=== PATIENT | male | born 1965 | race Caucasian/White ===

== ENCOUNTER → 2021-11-17 09:26 | Outpatient (BNVA) | payer MEDICAID, SELFPAY | PROVIDERS: PCP Internal Medicine; Visit Provider Physician Assistant | DX: Z12.11 Encounter for screening for malignant neoplasm of colon (principal); F14.90 Cocaine use, unspecified, uncomplicated; F17.210 Nicotine dependence, cigarettes, uncomplicated ==

== ENCOUNTER 2023-10-18 11:07 | Outpatient (REF) | payer MEDICAID, SELFPAY ==
[2023-10-18 14:28] LABS: MANUAL DIFF FLAG NO
[2023-10-18 14:33] LABS: Basophils Absolute Auto 0.1 X10*3/uL (0.0-0.2); Basophils Percent Auto 0.8 % (0-2); Eosinophils Absolute Auto 0.2 X10*3/uL (0.0-0.4); Hematocrit 42.4 % (42.0-52.0); Hemoglobin 14.3 g/dl (14.0-18.0); Imm Gran Abs Auto 0.02 X10*3/uL (0.00-0.03); Imm Gran Pct Auto 0.2 % (0.0-0.4); Lymphocytes Absolute Auto 3.1 X10*3/uL (1.2-4.9); Lymphocytes Percent Auto 31.9 % (20-40); Mean Corpuscular HGB Conc 33.7 g/dl (31.0-36.0); Mean Corpuscular Hemoglobin 30.2 pg (27.0-33.0); Mean Corpuscular Volume 89.6 fL (80.0-98.0); Monocytes Absolute Auto 0.7 X10*3/uL (0.1-1.2); Monocytes Percent Auto 7.1 % (2-11); Neutrophils Absolute Auto 5.5 x10*3/uL (2.0-8.3); Platelet Count 359 X10*3/uL (160-400); Red Blood Count 4.73 X10*6/uL (4.60-5.80); Red Cell Distribution Width 13.5 % (11.0-16.0); White Blood Count 9.6 X10*3/uL (4.8-10.8)
[2023-10-18 14:42] LABS: Estimated Average Glucose 108 mg/dL; Hemoglobin A1c % 5.4 % (<6.0)
[2023-10-18 15:03] LABS: Alanine Aminotransferase 41 U/L (0-40); Albumin Level 4.5 g/dL (3.5-5.0); Alkaline Phosphatase 69 U/L (39-117); Anion Gap 11 (12-20); Aspartate Amino Transferase 79 U/L (5-37); Bilirubin Total 0.6 mg/dL (0.0-1.0); Blood Urea Nitrogen 13 mg/dL (9-16); Calcium 9.2 mg/dL (8.4-10.2); Carbon Dioxide 25 mmol/L (22-29); Chloride 109 mmol/L (96-108); Cholesterol 195 mg/dL (<200); Estimated Glomerular Filt Rate > 60; Glucose Random 88 mg/dL (60-115); HDL Cholesterol 36 mg/dL (>40); LDL Cholesterol Calculated 136 mg/dL (<100); Sodium 141 mmol/L (135-145); Total Protein 7.3 g/dL (6.5-8.0); Triglycerides 115 mg/dL (<150)
[2023-10-18 15:07] LABS: Prostate Specific Antigen 0.42 ng/mL (<0.05-4.0)
[2023-10-18 15:10] LABS: TSH reflex Free T4 0.75 uIU/mL (0.32-4.0)
[2023-10-19 04:15] LABS: ~Hepatitis C Antibody Reactive (Nonreactive)
[2023-10-22 14:43] LABS: HCV Log PCR <1.18 NOT DETECTED Log IU/mL (NOT DETECTED); HepC Viral Load <15 NOT DETECTED IU/mL (NOT DETECTED)
== END 2023-10-18 11:08 | disposition home or self-care (01) ==
LOC: HO.CHCLDS 11:07
PROVIDERS: Visit Provider Internal Medicine
DX: E78.5 Hyperlipidemia, unspecified (principal); Z12.5 Encounter for screening for malignant neoplasm of prostate
CPT/HCPCS: 36415; 80053; 80061; 83036; 84153; 84443; 85025; 86803; 87522

== ENCOUNTER 2023-12-05 12:46 | Outpatient (AMB) | payer MEDICAID, SELFPAY ==
--- NOTE | 2023-12-05 13:00 | MHC.OFFVIS ---
Intake Vital Signs 12/05/23 13:04 Height 5 ft 9 in Weight 190 lb BMI 28.1 Intake Visit Reasons: Right inguinal hernia Intake Note: Patient is seen in office for evaluation and treatment of a right inguinal hernia. Pt c/o: Onset 2-3 months, right groin, reports bulge, reports feels pressure sensation when coughs or sneeze. [place] Required: No Accompanied by: Self / Same As Patient Allergies No Known Allergies Allergy (Verified 11/17/21 09:46) Medication List - Last Reconciled 12/05/23 by Rudolph Shannon MD bisacodyl (Dulcolax (bisacodyl)) 10 mg (2 x 5 mg) PO ONCE 1 day polyethylene glycol 3350 (Miralax) 238 grams PO ONCE 1 day HPI HPI Comments History of Present Illness Details 57-year-old male patient presenting for evaluation of a right inguinal hernia. First noted the lump in the right groin approximately 3 months ago and feels it may be a reaction to 1 of his medications. He has some discomfort in the right groin but denies requiring pressure to reduce the hernia. He denies nausea, vomiting, fever or chills. His bowels have been normal as well. He denies a previous history of hernias or hernia surgery. He denies any symptoms in the left groin. [facility] Medical History COVID-19 vaccine series completed History of COVID-19 Hepatitis C Surgical History No pertinent past surgical history Family History Mother Arthritis Lung disease Scoliosis Father Type 2 diabetes mellitus Vascular disease Social History Household Members: Family Alcohol intake: current Alcohol intake frequency: a few times a month Patient Tobacco Use Status: Current everyday Tobacco user Tobacco use type: Cigarette Cigarettes Per Day: 10 Substance Use Type: Crack/Cocaine Current occupational status: employed Current occupation: ice [employer] Review of Systems Const All systems reviewed & are unremarkable except as noted in HPI and below Denies chills, Denies fever(s), Denies headache(s), Denies poor appetite and Denies weakness ENT Denies headache(s) Card Denies chest pain, Denies irregular heart rhythm, Denies palpitations and Denies dyspnea Resp Denies cough, Denies excessive phlegm production and Denies dyspnea GI Denies abdominal pain, Denies bloating, Denies change in bowel habits, Denies constipation, Denies heartburn, Denies diarrhea, Denies nausea and Denies vomiting Denies difficulty urinating and Denies urinary frequency Musc Denies back pain, Denies muscle weakness and Denies numbness Skin/Breast Denies changing lesions and Denies unusual bruising Neuro Denies headache(s), Denies numbness, Denies paresthesias and Denies weakness Psych Denies anxiety and Denies depression Endo Denies palpitations Tacho/Lymph Denies lymphadenopathy Physical Exam Const General: cooperative and no acute distress Nutritional Appearance: well nourished Orientation/consciousness: patient oriented x3 Limitations: no limitations HEENT Head: Yes normocephalic and Yes atraumatic Ears: hearing grossly normal bilaterally Resp Effort & Inspection: normal respiratory effort, no audible wheezes, no cough and no respiratory distress Cardio Jugular venous distension: no JVD GI Other: Examination in the standing position with Valsalva maneuvers reveals an easily identified right inguinal hernia which increases in size with Valsalva and reduces with light pressure. No hernia noted on the left side. Inspection: Yes normal to inspection Abdomen image: 1. Site of right inguinal hernia Skin Other: Warm, dry, no rash Neuro General: patient oriented x3 Extrem General: Yes no clubbing, cyanosis or edema Assessment & Plan Assessment & Plan (1) Reducible right inguinal hernia: Code(s): K40.90 - Unilateral inguinal hernia, without obstruction or gangrene, not specified as recurrent Plan 57-year-old male patient presenting with a recent onset right inguinal hernia. On examination the patient has a easily reducible right inguinal hernia which is nontender to palpation. I recommended a repair of the right inguinal hernia with mesh and after discussion of the procedure, risks, and alternatives, he consents to the procedure. He will be scheduled as a short-stay surgery. Coding Level of Care Code New Pt Level 4 (65653) Diagnoses Reducible right inguinal hernia K40.90
[2023-12-05 13:04] VITALS: BMI 28.1
== END 2023-12-05 13:16 | disposition home or self-care (01) ==
PROVIDERS: PCP Internal Medicine; Referring Provider Internal Medicine; Visit Provider Surgery
DX: K40.90 Unilateral inguinal hernia, without obstruction or gangrene, not specified as recurrent (principal)
CPT/HCPCS: 99204

== ENCOUNTER → 2023-12-05 12:46 | Outpatient (BNVA) | payer MEDICAID, SELFPAY | PROVIDERS: PCP Internal Medicine; Referring Provider Internal Medicine; Visit Provider Surgery | DX: K40.90 Unilateral inguinal hernia, without obstruction or gangrene, not specified as recurrent (principal) | CPT/HCPCS: 99202 ==

== ENCOUNTER 2024-07-08 13:06 | Outpatient (REF) | payer MEDICAID, SELFPAY ==
[2024-07-08 16:26] LABS: Alanine Aminotransferase 45 U/L (0-40); Albumin Level 4.2 g/dL (3.5-5.0); Alkaline Phosphatase 73 U/L (39-117); Anion Gap 14 (12-20); Aspartate Amino Transferase 38 U/L (5-37); Bilirubin Total 0.5 mg/dL (0.0-1.0); Blood Urea Nitrogen 15 mg/dL (9-16); Calcium 9.1 mg/dL (8.4-10.2); Carbon Dioxide 23 mmol/L (22-29); Chloride 106 mmol/L (96-108); Cholesterol 185 mg/dL (<200); Estimated Glomerular Filt Rate > 60; Glucose Random 125 mg/dL (60-115); HDL Cholesterol 32 mg/dL (>40); LDL Cholesterol Calculated 117 mg/dL (<100); Potassium 3.2 mmol/L (3.3-5.1); Sodium 140 mmol/L (135-145); Total Protein 6.9 g/dL (6.5-8.0); Triglycerides 183 mg/dL (<150)
== END 2024-07-08 13:07 | disposition home or self-care (01) ==
LOC: HO.CHCLDS 13:06
PROVIDERS: Visit Provider Internal Medicine
DX: I10 Essential (primary) hypertension (principal)
CPT/HCPCS: 36415; 80053; 80061